=== PATIENT | female | born 1970 | race Caucasian/White ===

== ENCOUNTER 2017-02-23 11:15 | Emergency (ER) | payer OTHER ==
[2017-02-23] MEDS ORDERED: Adacel Vial IM ONE ×2 (12:01→12:10)
[2017-02-23] MEDS ORDERED: XYLOCAINE 1% HCL 20 ML MDV IJ ONE (12:01)
[2017-02-23] MEDS ORDERED: BACIGUENT PACKET TP ONE (12:01)
--- NOTE | 2017-02-23 12:06 | ERPHSYRPT ---
- History of Present Illness Time Seen by Provider: 02/23/17 12:02 Source: patient Exam Limitations: no limitations Patient Subjective Stated Complaint: WHILE WASHING DISHES PT PUT HER HAND INTO THE SINK AND CUT HERSELF ON A BROKEN GLASS. Triage Nursing Assessment: PT IS AOX3, AMBULATORY TO COT WITH NO DIFFICULTIES, RESPS ARE EASY AND NON LABORED, SKIN IS PWD, RADIAL PULSES STRONG AND EQUAL BILAT. A LACERATION IS NOTED TO THE RIGHT HAND PROXIMAL TO THE THUMB. LACERATION IS APPROX 2 CM IN LENGTH. BLEEDING IS CONTROLLED AT THIS TIME. Physician History: This is a 46-year-old white female she arrives with complaint of laceration to her right thumb which she suffered while washing dishes at 11:00 this morning. She has no movement or sensory problems she has approximately 2.5 cm laceration to her right thumb volar surface at the base. Past medical history includes high blood pressure, asthma, hypothyroidism, menstrual period... Past surgical history includes , tubal ligation, uterine ablation,, appendectomy Occurred: this morning (11:00 this morning) Method of Injury: other (lacerated while washing dishes) Quality: other ( minimal pain) Severity of Pain-Max: none Severity of Pain-Current: none Extremities Pain Location: thumb: right Associated Symptoms: No back pain, No chills, No chest discomfort, No chest pain , No dyspnea, No fever, No jaw pain, No nausea, No neck pain, No sweating, No short of breath, No vomiting Allergies/Adverse Reactions: erythromycin base Allergy (Mild, Verified 02/23/17 11:32) Nausea Home Medications: Escitalopram Oxalate [Lexapro] 10 mg PO DAILY 02/28/16 [History] Hydrochlorothiazide 12.5 mg PO DAILY 02/28/16 [History] Levothyroxine Sodium [Synthroid] 175 mcg PO DAILY 02/28/16 [History] Losartan Potassium 50 mg PO DAILY 02/28/16 [History] Aripiprazole [Abilify] 5 mg PO DAILY 02/23/17 [History] Hx Tetanus, Diphtheria Vaccination/Date Given: No Hx Influenza Vaccination/Date Given: Yes Hx Pneumococcal Vaccination/Date Given: No Immunizations Up to Date: Yes - Review of Systems Constitutional: No Fever, No Chills Eyes: No Symptoms Ears, Nose, & Throat: No Symptoms Respiratory: No Cough, No Dyspnea Cardiac: No Chest Pain, No Edema, No Syncope Abdominal/Gastrointestinal: No Abdominal Pain, No Nausea, No Vomiting, No Diarrhea Genitourinary Symptoms: No Dysuria Musculoskeletal: No Back Pain, No Neck Pain Skin: Other (laceration right thumb) Neurological: No Dizziness, No Focal Weakness, No Sensory Changes Psychological: No Symptoms Endocrine: No Symptoms All Other Systems: Reviewed and Negative - Past Medical History Pertinent Past Medical History: Yes Neurological History: No Pertinent History ENT History: No Pertinent History Cardiac History: Hypertension Respiratory History: Asthma Endocrine Medical History: Hypothyroidism Musculoskeletal History: Other GI Medical History: No Pertinent History History: No Pertinent History Psycho-Social History: No Pertinent History Female Reproductive Disorders: Menstrual Problems Other Medical History: SCOLIOSIS HX IN ADOLESCENCE - Past Surgical History Past Surgical History: Yes Gastrointestinal: Appendectomy Female Surgical History: Section, Tubal Ligation Other Surgical History: ablation, c section x 2 tubal - Social History Smoking Status: Never smoker Drug Use: none Patient Lives Alone: No - Nursing Vital Signs Nursing Vital Signs: Initial Vital Signs Temperature 98.7 F Temperature Source Oral Pulse Rate 67 Respiratory Rate 18 Blood Pressure [Left Arm] 160/100 Pain Intensity 3 - Physical Exam General Appearance: alert Eyes, Ears, Nose, Throat Exam: moist mucous membranes Neck Exam: non-tender, supple Cardiovascular/Respiratory Exam: chest non-tender, normal breath sounds, regular rate/rhythm, no respiratory distress Abdominal Exam: non-tender, No guarding Back Exam: normal inspection, No vertebral tenderness Shoulder Exam: normal inspection, non-tender, no evidence of injury, normal ROM Elbow/Forearm Exam: normal inspection, non-tender, no evidence of injury, normal ROM Wrist Exam: normal inspection, non-tender, no evidence of injury, normal ROM Hand Exam: No normal inspection (right hand with 2.5 cm laceration to the right base of the thumb, full range of motion all right fingers sensation intact to all fingers) Neuro/Tendon Exam: normal sensation, normal motor functions Mental Status Exam: alert, oriented x 3, cooperative Skin Exam: normal color, warm, dry SpO2 Interpretation: normal (100%) SpO2: 100 Oxygen Delivery: Room Air - Course Nursing assessment & vital signs reviewed: Yes Ordered Tests: Active Orders 24 hr Category Date Time Status Prepare for Sutures STAT Care 02/23/17 12:01 Active Sutures STAT Care 02/23/17 12:01 Active Wound Care STAT Care 02/23/17 12:01 Active Medication Summary Discontinued Medications Generic Name Dose Route Start Last Admin Trade Name Dragan PRN Reason Stop Dose Admin Bacitracin 0.9 gm 02/23/17 12:01 02/23/17 12:16 Baciguent Packet TP 02/23/17 12:02 0.9 gm STAT ONE Administration Bacitracin Confirm 02/23/17 12:10 Baciguent Packet Administered 02/23/17 12:11 Dose 1 gm .ROUTE .STK-MED ONE Diphtheria/Tetanus/Acell Pertussis 0.5 ml 02/23/17 12:01 02/23/17 12:15 Adacel Vial IM 02/23/17 12:02 0.5 ml .ONCE ONE Administration Diphtheria/Tetanus/Acell Pertussis Confirm 02/23/17 12:10 Adacel Vial Administered 02/23/17 12:11 Dose 0.5 ml IM .STK-MED ONE Lidocaine HCl 5 ml 02/23/17 12:01 02/23/17 12:57 Xylocaine 1% Hcl 20 Ml Mdv IJ 02/23/17 12:02 5 ml STAT ONE Administration Lidocaine HCl Confirm 02/23/17 12:10 Xylocaine 1% Hcl 20 Ml Mdv Administered 02/23/17 12:11 Dose 5 ml .ROUTE .STK-MED ONE - Progress Progress: improved Progress Note: 02/23/17 12:06 46-year-old white female with laceration on her right thumb which suffered while washing dishes this morning. She has a 2.5 cm laceration she has full range of motion all right fingers good capillary refill all right finger sensation intact all right fingers. She does state that has been more than 5 years for her last tetanus. Will go ahead and repair the laceration and give patient DTaP injection. 02/23/17 12:45 Laceration repair 2.5 cm laceration right thumb. Laceration sterilely cleansed and draped. Anesthetized with 1% lidocaine. Laceration repaired using 3 5-0 Ethilon sutures. Sterile dressing applied by nurse Patient neurovascular intact after repair - Departure Time of Disposition: 12:47 Departure Disposition: Home Clinical Impression: Laceration of right thumb Qualifiers: Encounter type: initial encounter Damage to nail status: without damage Foreign body presence: without foreign body Qualified Code(s): S61.011A - Laceration without foreign body of right thumb without damage to nail, initial encounter Condition: Fair Critical Care Time: No Referrals: GÓMEZ CHAPMAN MD [Primary Care Provider] - Instructions: Care for a Laceration After Repair Additional Instructions: Return home. Keep area clean and dry. Bacitracin to area daily until healed. Sutures out 5-7 days. Follow-up with your family doctor or return if signs of infection or problems. Avoid placing traction on area until healed. Return for acute distress or for severe symptoms.
[2017-02-23] MEDS ORDERED: BACIGUENT PACKET ONE (12:10)
[2017-02-23] MEDS ORDERED: XYLOCAINE 1% HCL 20 ML MDV ONE (12:10)
[2017-02-23 13:03] VITALS: BP 160/100; PULSE 67
[2017-02-23 13:04] VITALS: O2SAT 100
== END 2017-02-23 13:02 | disposition home or self-care (01) ==
LOC: ED 11:15
PROC: 0HQFXZZ Repair Right Hand Skin, External Approach (ICD-10-PCS; principal; 2017-02-23)
DX: S61.011A Laceration without foreign body of right thumb without damage to nail, initial encounter (principal); W25.XXXA Contact with sharp glass, initial encounter; Y93.G1 Activity, food preparation and clean up
CPT/HCPCS: 12001; 90471; 90715; 99283; A9270-GY